=== PATIENT | female | born 1970 | race American Indian/Alaskan Native ===

== ENCOUNTER 2017-09-02 19:49 | Emergency (ER) | payer OTHER, SELFPAY ==
[2017-09-02] MEDS ORDERED: Acetaminophen 500 MG TAB ONE (20:22)
== END 2017-09-02 20:28 | disposition home or self-care (01) ==
LOC: MADERS 19:49
DX: T63.441A Toxic effect of venom of bees, accidental (unintentional), initial encounter (principal); I10 Essential (primary) hypertension; F17.210 Nicotine dependence, cigarettes, uncomplicated; Z91.14 Patient's other noncompliance with medication regimen
CPT/HCPCS: 99282

== ENCOUNTER 2017-10-27 14:42 | Emergency (ER) | payer SELFPAY ==
[2017-10-27] MEDS ORDERED: HYDROmorphone 0.5 MG/0.5 ML SYRINGE ONE (14:53)
[2017-10-27] MEDS ORDERED: Silver Sulfadiazine 1% Cream 50 GM JAR ONE (15:18)
[2017-10-27 15:20] LABS: #Basophils 0.1 thou/uL (0.0-0.2); #Eosinphils 0.1 thou/uL (0.0-0.7); #Monocytes 0.6 thou/uL (0.11-0.59); #Neutrophils 4.9 thou/uL (1.40-6.50); %Basophils 0.9 % (0.0-1.0); %Eosinophils 1.6 % (0.0-10.0); %Lymphocytes 25.9 % (21.0-51.0); %Monocytes 7.9 % (0.0-10.0); %Neutrophils 63.7 % (42.0-75.0); Hemoglobin 14.7 g/dL (12.0-16.0); Mean Corpuscular HGB CONC 32.9 g/dL (32.0-36.0); Mean Corpuscular Hemoglobin 28.1 pg (27.0-31.0); Mean Corpuscular Volume 85.4 fL (78.0-98.0); Mean Platelet Volume 6.9 fL (7.4-10.4); Platelet Count 315 thou/uL (130-400); RBC Distribution Width 12.1 % (11.5-14.5); Red Blood Cell (RBC) Count 5.25 mill/uL (4.20-5.40); White Blood Cell (WBC) Count 7.6 thou/uL (4.8-10.8)
[2017-10-27 15:34] LABS: ALT (SGPT) 45 U/L (8-55); AST (SGOT) 29 U/L (5-34); Albumin 4.1 g/dL (3.5-5.0); Alkaline Phosphatase 81 U/L (40-150); Anion Gap 14 mmol/L (10-20); BUN (Urea Nitrogen) 13 mg/dL (7.0-18.7); Bilirubin, Total 0.3 mg/dL (0.2-1.2); Calc. Creatinine Clearance 0 mL/min (70-130); Calcium 9.5 mg/dL (7.8-10.44); Carbon Dioxide 20 mmol/L (22-29); Chloride 108 mmol/L (98-107); Estimated GFR-MDRD 89; Globulin 3.5 g/dL (2.4-3.5); Glucose 98 mg/dL (70-105); Potassium 4.3 mmol/L (3.5-5.1); Protein, Total 7.6 g/dL (6.0-8.3); Sodium 138 mmol/L (136-145)
== END 2017-10-27 16:20 | disposition home or self-care (01) ==
LOC: MADERS 14:42
DX: T23.252A Burn of second degree of left palm, initial encounter (principal); T23.251A Burn of second degree of right palm, initial encounter; T23.202A Burn of second degree of left hand, unspecified site, initial encounter; T21.05XA Burn of unspecified degree of buttock, initial encounter; T24.012A Burn of unspecified degree of left thigh, initial encounter; T31.0 Burns involving less than 10% of body surface; I10 Essential (primary) hypertension; F17.210 Nicotine dependence, cigarettes, uncomplicated; X08.8XXA Exposure to other specified smoke, fire and flames, initial encounter
CPT/HCPCS: 16020; 36415; 80053; 85025; 96360; 96361; 96372; J1170

== ENCOUNTER 2020-06-25 19:59 | Emergency (ER) | payer SELFPAY | END 2020-06-25 21:17 | disposition home or self-care (01) | LOC: MADERS 19:59 | DX: K64.4 Residual hemorrhoidal skin tags (principal); F17.210 Nicotine dependence, cigarettes, uncomplicated; I10 Essential (primary) hypertension | CPT/HCPCS: 99283 ==